=== PATIENT | male | born 1960 | race African-American/Black ===

== ENCOUNTER 2021-11-15 11:14 | Emergency (ER) | payer OTHER ==
[2021-11-15 13:41] LABS: #Eosinphils 0.1 10x3/uL (0.0-0.5); #Monocytes 0.5 10x3/uL (0.0-1.1); %Basophils 0.4 % (0.0-2.0); %Eosinophils 1.8 % (0.0-6.0); %Lymphocytes 45.9 % (18.0-47.0); %Monocytes 7.1 % (0.0-10.0); %Neutrophils 44.7 % (40.0-75.0); Hemoglobin 15.8 g/dL (13.5-17.5); Mean Corpuscular HGB CONC 34.6 g/dL (32.0-36.0); Mean Corpuscular Hemoglobin 31.3 pg (27.0-33.0); Mean Corpuscular Volume 90.7 fl (81.2-95.1); Mean Platelet Volume 11.9 fl (7.4-10.4); Platelet Count 155 10x3/uL (150-450); RBC Distribution Width 12.2 % (11.5-14.5); Red Blood Cell (RBC) Count 5.04 10x6/uL (4.32-5.72); White Blood Cell (WBC) Count 6.7 10x3/uL (3.5-10.5)
[2021-11-15 13:48] LABS: Bilirubin Neg (Negative); Blood, Urine Negative (Negative); Clarity Clear (Clear); Glucose, Urine (Dipstick) Normal (Negative); Ketone, Urine Negative (Negative); Leukocyte Negative (Negative); Nitrite Negative (Negative); Protein, Urine (Dipstick) Negative (Neg-Trace); Urobilinogen Normal mg/dL (Less than 2)
[2021-11-15 13:53] LABS: ALT (SGPT) 32 U/L (8-55); AST (SGOT) 23 U/L (5-34); Albumin 4.5 g/dL (3.4-4.8); Alkaline Phosphatase 58 U/L (40-110); Anion Gap 15 mmol/L (10-20); BUN (Urea Nitrogen) 15 mg/dL (8.4-25.7); Bilirubin, Total 0.4 mg/dL (0.2-1.2); Calc. Creatinine Clearance 0 mL/min (70-130); Calcium 9.8 mg/dL (7.8-10.44); Carbon Dioxide 23 mmol/L (23-31); Chloride 105 mmol/L (98-107); Globulin 3.7 g/dL (2.4-3.5); Glucose 109 mg/dL (80-115); Lipase 91 U/L (8-78); Potassium 3.9 mmol/L (3.5-5.1); Protein, Total 8.2 g/dL (5.8-8.1); Sodium 139 mmol/L (136-145)
== END 2021-11-15 16:28 | disposition home or self-care (01) ==
LOC: CSHERS 11:14
DX: K29.70 Gastritis, unspecified, without bleeding (principal); I11.0 Hypertensive heart disease with heart failure; I50.9 Heart failure, unspecified
CPT/HCPCS: 36415; 71045; 74177; 80053; 81003; 83605; 83690; 85025; 93005

== ENCOUNTER 2022-01-15 13:15 | Emergency (ER) | payer MEDICAID, OTHER ==
[2022-01-15] MEDS ORDERED: Ketorolac Tromethamine 30 MG/ML VIAL ONE (15:10)
== END 2022-01-15 15:20 | disposition home or self-care (01) ==
LOC: CSHERS 13:15
DX: M25.531 Pain in right wrist (principal); I11.0 Hypertensive heart disease with heart failure; I50.9 Heart failure, unspecified
CPT/HCPCS: 96372; J1885

== ENCOUNTER 2022-12-06 11:28 | Emergency (ER) | payer OTHER ==
[2022-12-06 14:12] LABS: SARS-CoV-2 NAA Rapid Test DETECTED (NotDetected)
== END 2022-12-06 13:17 | disposition home or self-care (01) ==
LOC: CSHERS 11:28
DX: J06.9 Acute upper respiratory infection, unspecified (principal); I11.0 Hypertensive heart disease with heart failure; I50.9 Heart failure, unspecified; Z20.822 Contact with and (suspected) exposure to COVID-19
CPT/HCPCS: 71046

== ENCOUNTER 2023-01-03 10:05 | Outpatient (CLI) | payer OTHER ==
[~2023-01-03 10:05] MED LIST: Iopamidol 300 61% 100 ML VIAL FS ONE
== END 2023-01-03 10:06 | disposition home or self-care (01) ==
LOC: CSHCT 10:05
PROVIDERS: ATTEND Specialist
DX: K43.2 Incisional hernia without obstruction or gangrene (principal)
CPT/HCPCS: 74177; 82565; Q9967

== ENCOUNTER 2023-01-06 07:38 | Day surgery (SDC) | payer OTHER ==
[2023-01-03 08:20] VITALS: BMI 32.0
[2023-01-06] MEDS ORDERED: PHENYLEPHRINE-NS 100 MCG/ML 10 ML SYRINGE ONE (09:37)
[2023-01-06] MEDS ORDERED: PROPOFOL 20 ML ONE (09:40)
== END 2023-01-06 10:15 | disposition home or self-care (01) ==
LOC: CSHSDC 07:38
PROVIDERS: ATTEND Internal Medicine Gastroenterology
PROC: 0DJD8ZZ Inspection of Lower Intestinal Tract, Via Natural or Artificial Opening Endoscopic (ICD-10-PCS; principal; 2023-01-06)
DX: C18.9 Malignant neoplasm of colon, unspecified (principal); K64.9 Unspecified hemorrhoids; I11.0 Hypertensive heart disease with heart failure; I50.9 Heart failure, unspecified; E66.9 Obesity, unspecified; E78.5 Hyperlipidemia, unspecified; K21.9 Gastro-esophageal reflux disease without esophagitis; Z95.810 Presence of automatic (implantable) cardiac defibrillator; Z68.32 Body mass index [BMI] 32.0-32.9, adult; Z90.49 Acquired absence of other specified parts of digestive tract; Z98.0 Intestinal bypass and anastomosis status; Z86.010 Personal history of colon polyps; Z79.899 Other long term (current) drug therapy
CPT/HCPCS: J2704

== ENCOUNTER 2023-03-09 18:40 | Emergency (ER) | payer OTHER ==
[2023-03-09] MEDS ORDERED: Dexamethasone 10 MG/ML VIAL ONE (20:00)
[2023-03-09] MEDS ORDERED: Acetaminophen 500 MG TAB ONE (20:00)
[2023-03-09 20:44] LABS: SARS-CoV-2 NAA Rapid Test Not Detected (NotDetected)
== END 2023-03-09 21:17 | disposition home or self-care (01) ==
LOC: CSHERS 18:40
DX: B37.0 Candidal stomatitis (principal); I11.0 Hypertensive heart disease with heart failure; I50.9 Heart failure, unspecified
CPT/HCPCS: 71045; 87081; 87430; J1100

== ENCOUNTER 2023-07-14 08:20 | Outpatient (CLI) | payer OTHER | END 2023-07-14 08:21 | disposition home or self-care (01) | LOC: CSHCT 08:20 | PROVIDERS: ATTEND Family Medicine | DX: M25.571 Pain in right ankle and joints of right foot (principal); I70.201 Unspecified atherosclerosis of native arteries of extremities, right leg ==

== ENCOUNTER 2023-10-15 16:20 | Outpatient (CLI) | payer OTHER | END 2023-10-15 16:21 | disposition home or self-care (01) | LOC: CSHRAD 16:20 | PROVIDERS: ATTEND Family Medicine | DX: Q76.49 Other congenital malformations of spine, not associated with scoliosis (principal) | CPT/HCPCS: 72081 ==

== ENCOUNTER 2023-10-22 13:16 | Emergency (ER) | payer OTHER ==
[2023-10-22] MEDS ORDERED: Acetaminophen 500 MG TAB ONE (13:59)
[2023-10-22 14:26] LABS: SARS-CoV-2 NAA Rapid Test Not Detected (NotDetected)
[2023-10-22 14:38] LABS: #Eosinphils 0.1 10x3/uL (0.0-0.5); #Monocytes 0.6 10x3/uL (0.0-1.1); #Neutrophils 4.9 10x3/uL (1.5-8.4); %Basophils 0.4 % (0.0-2.0); %Eosinophils 1.2 % (0.0-6.0); %Lymphocytes 16.4 % (18.0-47.0); %Monocytes 8.9 % (0.0-10.0); Hematocrit 45.9 % (38.8-50.0); Hemoglobin 15.4 g/dL (13.5-17.5); Mean Corpuscular HGB CONC 33.6 g/dL (32.0-36.0); Mean Corpuscular Hemoglobin 30.3 pg (27.0-33.0); Mean Corpuscular Volume 90.2 fl (81.2-95.1); Mean Platelet Volume 10.9 fl (7.4-10.4); Platelet Count 130 10x3/uL (150-450); RBC Distribution Width 12.6 % (11.5-14.5); Red Blood Cell (RBC) Count 5.09 10x6/uL (4.32-5.72); White Blood Cell (WBC) Count 6.8 10x3/uL (3.5-10.5)
[2023-10-22 14:40] LABS: ALT (SGPT) 34 U/L (8-55); AST (SGOT) 31 U/L (5-34); Albumin 4.6 g/dL (3.4-4.8); Alkaline Phosphatase 54 U/L (40-110); Anion Gap 13 mmol/L (10-20); BUN (Urea Nitrogen) 13 mg/dL (8.4-25.7); Bilirubin, Total 0.7 mg/dL (0.2-1.2); Calc. Creatinine Clearance 0 mL/min (70-130); Calcium 9.3 mg/dL (7.8-10.44); Carbon Dioxide 24 mmol/L (23-31); Chloride 106 mmol/L (98-107); Estimated GFR 66; Globulin 2.8 g/dL (2.4-3.5); Glucose 134 mg/dL (80-115); Magnesium 1.8 mg/dL (1.6-2.6); Potassium 3.8 mmol/L (3.5-5.1); Protein, Total 7.4 g/dL (5.8-8.1); Sodium 139 mmol/L (136-145)
[2023-10-22 14:46] LABS: Troponin I Less than 0.010 ng/mL (< 0.028)
== END 2023-10-22 15:12 | disposition home or self-care (01) ==
LOC: CSHERS 13:16
DX: J11.1 Influenza due to unidentified influenza virus with other respiratory manifestations (principal); I11.0 Hypertensive heart disease with heart failure; I50.9 Heart failure, unspecified
CPT/HCPCS: 36415; 71045; 80053; 83735; 84484; 85025; 87081; 87430; 93005

== ENCOUNTER 2024-10-08 09:40 | Outpatient (CLI) | payer MEDICARE, MEDICAID ==
[2024-10-08] MEDS ORDERED: Iopamidol 300 61% 100 ML VIAL FS ONE (12:53)
== END 2024-10-08 09:41 | disposition home or self-care (01) ==
LOC: CSHCT 09:40
PROVIDERS: ATTEND Family Medicine
DX: R10.31 Right lower quadrant pain (principal); R19.7 Diarrhea, unspecified; Z98.890 Other specified postprocedural states
CPT/HCPCS: 36415; 74177; 82565 ×2; Q9967

== ENCOUNTER 2025-03-03 10:47 | Emergency (ER) | payer OTHER, MEDICAID ==
[2025-03-03] MEDS ORDERED: predniSONE 20 MG TAB ONE (13:15)
== END 2025-03-03 13:28 | disposition home or self-care (01) ==
LOC: CSHERS 10:47
DX: T63.461A Toxic effect of venom of wasps, accidental (unintentional), initial encounter (principal); L08.9 Local infection of the skin and subcutaneous tissue, unspecified; E11.9 Type 2 diabetes mellitus without complications; I50.9 Heart failure, unspecified; I25.2 Old myocardial infarction; I10 Essential (primary) hypertension; Z95.0 Presence of cardiac pacemaker
CPT/HCPCS: 99282; J7512